=== PATIENT | female | born 2000 | race Caucasian/White ===

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

== ENCOUNTER 2019-04-03 10:04 | Emergency (ER) | payer BC ==
[2019-04-03 10:31] VITALS: BP 129/62
--- NOTE | 2019-04-03 10:51 | UC ---
Throat Pain/Nasal Santos HPI - HPI Summary HPI Summary: Per exercise planner: "Cold symptoms x1 week. Left ear clogged feeling with intermittent pain x3 days. " -here w/ Mom. + nasal congestion. no cough. no wheezing -home from college fro break. -denies preganncy. on OCP. Mom is candid w/ her and tells her that OCP not effective while on abx. - History of Current Complaint Chief Complaint: UCEar Stated Complaint: LEFT EAR COMPLAINT Time Seen by Provider: 04/03/19 10:31 Hx Last Menstrual Period: 03/2019 Pain Intensity: 5 - Allergies/Home Medications Allergies/Adverse Reactions: Allergies Allergy/AdvReac Type Severity Reaction Status Date / Time ibuprofen Allergy Vomiting Verified 04/03/19 10:28 kiwi Allergy Swelling Verified 04/03/19 10:28 Of Face,Lips,& Throat latex Allergy Rash Verified 04/03/19 10:28 Penicillins Allergy Rash Verified 04/03/19 10:28 PMH/Surg Hx/FS Hx/Imm Hx Previously Healthy: Yes - Surgical History Surgical History: Yes Surgery Procedure, Year, and Place: wisdom teeth - Family History Known Family History: Positive: Other - No related family history to this URI. Negative: Respiratory Disease - no asthma - Social History Occupation: Student Alcohol Use: Occasionally Substance Use Type: None Smoking Status (MU): Never Smoked Tobacco - Immunization History Vaccination Up to Date: Yes Review of Systems All Other Systems Reviewed And Are Negative: Yes Constitutional: Positive: Fatigue. Negative: Fever - no antipiretics today Skin: Positive: Negative. Negative: Rash Eyes: Positive: Negative ENT: Positive: Sore Throat, Ear Ache, Nasal Discharge. Negative: Sinus Congestion, Sinus Pain/Tenderness Respiratory: Positive: Negative. Negative: Shortness Of Breath, Cough Cardiovascular: Positive: Negative Gastrointestinal: Positive: Negative. Negative: Vomiting, Diarrhea, Nausea Genitourinary: Positive: Negative Motor: Positive: Negative Neurovascular: Positive: Negative Musculoskeletal: Positive: Negative Neurological: Positive: Negative Psychological: Positive: Negative Is Patient Immunocompromised?: No Physical Exam Triage Information Reviewed: Yes Appearance: Well-Appearing, No Pain Distress, Well-Nourished - very pleasant. good historian Vital Signs: Initial Vital Signs Temp 98.5 F 04/03/19 10:28 Pulse 78 04/03/19 10:28 Resp 14 04/03/19 10:28 BP 129/62 04/03/19 10:28 Pulse Ox 100 04/03/19 10:28 Eye Exam: Normal ENT: Positive: Pharyngeal erythema - mild w/ + PND, Nasal congestion, Nasal drainage, TM bulging - left red, intact. no dc. right nml, TM dull, TM red, Hoarse voice - mild, Uvula midline. Negative: Tonsillar swelling, Tonsillar exudate, Sinus tenderness Neck exam: Normal Neck: Positive: Supple, Nontender, No Lymphadenopathy Respiratory Exam: Normal Respiratory: Positive: Chest non-tender, Lungs clear, Normal breath sounds, No respiratory distress, No accessory muscle use. Negative: Crackles, Rhonchi, Stridor, Wheezing Cardiovascular Exam: Normal Abdominal Exam: Normal Abdomen Description: Positive: Nontender, Soft Musculoskeletal Exam: Normal Neurological Exam: Normal Psychological Exam: Normal Skin Exam: Normal Skin: Negative: Rashes Throat Pain/Nasal Course/Dx - Course Course Of Treatment: left AOM. can swallow big pills. denies pregncny. on OCP - Differential Dx/Diagnosis Differential Diagnosis/HQI/PQRI: Otitis Media, Pharyngitis, Sinusitis Provider Diagnosis: Left acute otitis media Discharge ED - Sign-Out/Discharge Documenting (check all that apply): Patient Departure All imaging exams completed and their final reports reviewed: No Studies - Discharge Plan Condition: Stable Disposition: HOME Patient Education Materials: Ear Infection (ED) Referrals: Matt Lewis DC [Primary Care Provider] - Additional Instructions: It is recommended that you take a probiotic daily while you are on antibiotics. A few common brands that you can buy over the counter are colon health, align and florastor. These can help prevent a colon infection called c diff that can be associated with antibiotic use. --You should be aware that other medications, specifically antibiotics. can decrease the efficacy of control pills. Please make sure to use other means of control for the rest of the pill pack you are taking while on the antibiotic. -There is a very low chance of allergic reaction to the cefdinir with a penicillin allergy. please take benadryl 50mgs and get evaluated immediately if you develop rash, hives or difficulty breathing. - Billing Disposition and Condition Condition: STABLE Disposition: Home
== END 2019-04-03 11:05 | disposition home or self-care (01) ==
LOC: UCCORT 10:04
DX: H66.92 Otitis media, unspecified, left ear (principal); R09.81 Nasal congestion; R09.82 Postnasal drip; R09.89 Other specified symptoms and signs involving the circulatory and respiratory systems; R53.83 Other fatigue; Z88.6 Allergy status to analgesic agent; Z91.018 Allergy to other foods; Z91.040 Latex allergy status; Z88.0 Allergy status to penicillin
CPT/HCPCS: 99212; G0463